=== PATIENT | female | born 1975 | race Caucasian/White ===

== ENCOUNTER 2016-08-06 12:05 | Emergency (ER) | payer OTHER ==
[~2016-08-06] VITALS: Wt 93.2 kg
[~2016-08-06 12:05] MED LIST: ACET500C5 PO; ALBU8.5H3 INH; AZIT250T94 PO; AZIT500T5 PO; BENZ100C70 PO; HYD25 PO; PRED50 PO
[2016-08-06 13:15] VITALS: BP 170/104
--- NOTE | 2016-08-06 13:18 | ERD ---
ER Documentation Chief Complaint Date/Time DATE: 08/06/16 TIME: 13:15 Chief Complaint high bp this am after starting new bp med last night HPI Patient is a 41-year-old female with a history of epilepsy and hypertension who presents to the ED with blood pressure recheck. She states that she started amlodipine 10 mg daily last night after visiting her primary care. She states that her blood pressure readings have been in the 190s over 120s. She states that she went to her dentist this morning to have her teeth pulled however the dentist sent her to the ED for blood pressure management. She states that she does not have an appointment with the dentist coming up and will be making appointment in the future. She states that she has only started her amlodipine yesterday and states that her blood pressure is in the 180s over 106 at home. Denies headache or dizziness. Denies blurry vision. No complaints. ROS All systems reviewed and are negative except as per history of present illness. Medications Home Meds Active Scripts Benzonatate* (Tessalon Perle*) 100 Mg Capsule, 100 MG PO TID Y for COUGH, #20 CAP Prov:KRUNAL JUAREZ 01/05/16 Prednisone (Prednisone) 50 Mg Tab, 50 MG PO DAILY, #5 TAB Prov:KRUNAL JUAREZ 01/05/16 Albuterol Sulfate* (Proair HFA*) 8.5 Gm Hfa.aer.ad, 2 PUFF INH Q4, #1 INHALER Prov:KRUNAL JUAREZ 01/05/16 Azithromycin* (Azithromycin*) 500 Mg Tablet, 500 MG PO DAILY, #7 TAB Prov:KRUNAL JUAREZ 01/05/16 Hydrochlorothiazide* (Hydrochlorothiazide*) 25 Mg Tab, 25 MG PO DAILY, #30 TAB Prov:KRUNAL JUAREZ 01/05/16 Acetaminophen* (Tylophen*) 500 Mg Capsule, 2 CAP PO Q8H Y for PAIN AND OR ELEVATED TEMP, #20 CAP Prov:JIMMY OLIVARES 08/31/15 Azithromycin* (Zithromax*) 250 Mg Tablet, 250 MG PO .ZPACK DIRECTED, #6 TAB TAKE 500 MG (2 TABS) THE FIRST DAY THEN 250 MG (1 TAB) DAYS 2-5 Prov:JIMMY OLIVARES 08/31/15 Allergies Allergies: Coded Allergies: No Known Allergy (Unverified , 08/31/15) PMhx/Soc History of Surgery: No Hx Neurological Disorder: Yes (seizure) Hx Cardiac Disorders: Yes (HTN) Hx Psychiatric Problems: No Hx Miscellaneous Medical Probl: No Hx Alcohol Use: No Hx Substance Use: No Hx Tobacco Use: No Smoking Status: Never smoker FmHx Family History: No coronary disease, No diabetes, No other Physical Exam Vitals Vital Signs Date Time Temp Pulse Resp B/P Pulse Ox O2 Delivery O2 Flow Rate FiO2 08/06/16 12:10 99.0 124 20 185/107 99 Physical Exam GENERAL: Well-developed, well-nourished female. Appears in no acute distress. HEAD: Normocephalic, atraumatic. EYES: Pupils are equally reactive bilaterally. EOMs grossly intact. No conjunctival erythema. ENT: Moist mucous membranes. No uvula deviation. No kissing tonsils. No exudates. NECK: Supple. No lymphadenopathy or thyromegaly. No meningismus. negative kernig. negative brudinski. LUNG: Clear to auscultation bilaterally. No rhonchi, wheezing, rales or coarse breath sounds. HEART: Regular rate and rhythm. No murmurs, rubs or gallops. NEUROLOGIC: Alert and oriented. Moving all four extremities. 5/5 strength in all extremities. Normal speech. Steady gait. Cranial nerves II through XII intact SKIN: Normal color. Warm and dry. No rashes or lesions. Capillary refill < 2 seconds Procedures/MDM ER COURSE: I kept the patient and/or family informed of laboratory and diagnostic imaging results throughout the emergency room course. MEDICAL DECISION MAKING: This is a 41-year-old female who presents with hypertension. Vital signs were reviewed. Patient is afebrile. Patient is not hypoxic. Patient's blood pressure in the ED is 185/107. She states that her amlodipine was started last night. I have consulted with Dr. Bailey who has reviewed her vitals and history. Patient will not be given any blood pressure medications in the ED. Patient does not show signs of hypertensive urgency, emergency, or end organ damage. Since she just started her amlodipine, I instructed patient that it takes time for blood pressure management. Advised patient to follow-up with her primary care in 1 week after recording her blood pressure readings for better blood pressure management. Low suspicion for intracranial hemorrhage, meningitis, intracranial mass, concussion, temporal arteritis, stroke, elevated intracranial pressure, seizure. DISCHARGE: At this time, patient is stable for discharge and outpatient management with no new complaints during the ER course. Patient will be discharged home with instructions to recheck for new or worsening symptoms such as fever, nausea, weakness, LOC and to follow up with primary care in the next 1-2 days. Patient was advised to return to the ER for any new or worsening symptoms. Plan was discussed and patient and/or family understands and agrees. Home instructions were given. Departure Diagnosis: Primary Impression: High blood pressure Hypertension type: essential hypertension Qualified Code: I10 - Essential hypertension Condition: Stable Patient Instructions: High Blood Pressure (Hypertension) Additional Instructions: Call your primary care doctor TOMORROW for an appointment during the next 1-2 days.See the doctor sooner or return here if your condition worsens before your appointment time. Continue taking your amlodipine as directed by your PCP. Follow-up in 1 week and record her blood pressures at home. DEAN YI PA-C Aug 06, 2016 13:18
== END 2016-08-06 13:17 | disposition home or self-care (01) ==
LOC: FTE 12:05
DX: I10 Essential (primary) hypertension (principal)
CPT/HCPCS: 99282

== ENCOUNTER 2016-11-02 15:35 | Emergency (ER) | payer OTHER ==
[~2016-11-02] VITALS: Ht 154.9 cm; Wt 93.0 kg
[2016-11-02 15:45] VITALS: Ht 154.9 cm; Wt 93.0 kg
[2016-11-02] MEDS ORDERED: KETOROLAC 30 MG INJ IV STA (18:19)
[2016-11-02] MEDS ORDERED: DIPHENHYDRAMINE 50 MG INJ IV STA (18:19)
[2016-11-02] MEDS ORDERED: SOD CHLORIDE 0.9% 1,000 ML IV STA (18:19)
[2016-11-02] MEDS ORDERED: METOCLOPRAMIDE 10 MG INJ IV STA (18:19)
[2016-11-02 19:04] LABS: ADD SCAN DIFF NO
[2016-11-02 19:07] LABS: BASOPHILS % 0.2 % (0.0-2.0); EOSINOPHILS # 0.4 10^3/ul (0.0-0.5); EOSINOPHILS % 2.3 % (0.0-7.0); HEMATOCRIT 44.1 % (37.0-47.0); LYMPHOCYTES # 3.7 10^3/ul (0.8-2.9); LYMPHOCYTES % 23.2 % (15.0-51.0); MEAN CORPUSCULAR HEMOGLOBIN 29.1 pg (29.0-33.0); MEAN CORPUSCULAR VOLUME 85.6 fl (82.0-101.0); MEAN PLATELET VOLUME 9.9 fl (7.4-10.4); MONOCYTE # 0.9 10^3/ul (0.3-0.9); MONOCYTES % 5.9 % (0.0-11.0); NEUTROPHIL # 10.9 10^3/ul (1.6-7.5); PLATELET COUNT 300 10^3/UL (140-415); RED BLOOD COUNT 5.15 10^6/ul (4.20-5.40); RED CELL DISTRIBUTION WIDTH 13.2 % (11.5-14.5)
[2016-11-02 19:21] LABS: INR 0.93; PROTIME 12.5 Sec (12.2-14.2)
[2016-11-02 19:22] LABS: PARTIAL THROMBOPLASTIN TIME 28.1 Sec (25.0-35.0)
[2016-11-02 19:24] LABS: POTASSIUM 3.5 mmol/L (3.5-5.1)
[2016-11-02 19:27] LABS: CREATININE 0.53 mg/dl (0.44-1.00)
[2016-11-02 19:28] LABS: CALCIUM 9.3 mg/dl (8.4-10.2)
--- NOTE | 2016-11-02 19:45 | RADRPT ---
PROCEDURE: CT Brain without contrast. CLINICAL INDICATION: Patient experiencing a headache. TECHNIQUE: A multiplanar CT of the brain was performed on a CT scanner utilizing axial imaging fro m the skull base through the vertex without IV contrast. The CTDIvol is 43.16 mGy and the DLP is 81 0.25 mGycm. One or more of the following dose reduction techniques were utilized: Automated exposu re control, adjustment of the mA and/or kV according to patient size, use of iterative reconstructio n technique. COMPARISON: None FINDINGS: No evidence of intracranial hemorrhage or abnormal extra-axial fluid collection. The brain parenchyma is normal attenuation morphology with preservation of turner white differentiatio n and age appropriate size of the ventricles and subarachnoid spaces. The basal cisterns, posterior fossa contents, brainstem, craniocervical junction, orbits, pituitary axis, paranasal sinuses, mastoid air cells, and calvarium are unremarkable. IMPRESSION: 1. No intracranial hemorrhage or acute intracranial abnormality. 2. If clinical symptoms persist, MRI may be considered as follow up. RPTAT:AAJJ Physician Magdy Date Time Electronically viewed and signed by Physician Magdy on 11/02/2016 19:44 CLEM/
[2016-11-02 20:53] LABS: URINE BLOOD (Dip) POC 2+ (NEGATIVE)
[2016-11-02] MEDS ORDERED: NITR-58 PO (21:01)
--- NOTE | 2016-11-02 21:08 | ERD ---
ER Documentation Chief Complaint Date/Time DATE: 11/02/16 TIME: 21:05 Chief Complaint Pt with intermittent BARRON X 2 weeks, worst today. HPI This is a 41-year-old female presents to the ER with a headache for the last 2 weeks. Patient states that the headache is left-sided as described as sharp. Headache is intermittent. Patient denies any loss of consciousness she denies any trauma. She denies any fever or chills. She denies any photophobia. She denies any eye pain. She denies any nausea or vomiting. Patient states that she tried Tylenol and Motrin for the headache however it did not work. Patient denies any urinary frequency or dysuria. ROS 12 point review of systems was done, all negative except per HPI. Medications Home Meds Active Scripts Nitrofurantoin Monohyd Macrocr* (Macrobid*) 100 Mg Capsr, 100 MG PO BID for 7 Days, CAP Prov:JIMMY OLIVARES 11/02/16 Benzonatate* (Tessalon Perle*) 100 Mg Capsule, 100 MG PO TID Y for COUGH, #20 CAP Prov:KRUNAL JUAREZ 01/05/16 Prednisone (Prednisone) 50 Mg Tab, 50 MG PO DAILY, #5 TAB Prov:KRUNAL JUAREZ 01/05/16 Albuterol Sulfate* (Proair HFA*) 8.5 Gm Hfa.aer.ad, 2 PUFF INH Q4, #1 INHALER Prov:KRUNAL JUAREZ 01/05/16 Azithromycin* (Azithromycin*) 500 Mg Tablet, 500 MG PO DAILY, #7 TAB Prov:KRUNAL JUAREZ 01/05/16 Hydrochlorothiazide* (Hydrochlorothiazide*) 25 Mg Tab, 25 MG PO DAILY, #30 TAB Prov:KRUNAL JUAREZ 01/05/16 Acetaminophen* (Tylophen*) 500 Mg Capsule, 2 CAP PO Q8H Y for PAIN AND OR ELEVATED TEMP, #20 CAP Prov:JIMMY OLIVARES 08/31/15 Azithromycin* (Zithromax*) 250 Mg Tablet, 250 MG PO .ZPACK DIRECTED, #6 TAB TAKE 500 MG (2 TABS) THE FIRST DAY THEN 250 MG (1 TAB) DAYS 2-5 Prov:JIMMY OLIVARES 08/31/15 Allergies Allergies: Coded Allergies: No Known Allergy (Unverified , 08/31/15) PMhx/Soc History of Surgery: No Hx Neurological Disorder: Yes (seizure) Hx Cardiac Disorders: Yes (HTN) Hx Psychiatric Problems: No Hx Miscellaneous Medical Probl: No Hx Alcohol Use: No Hx Substance Use: No Hx Tobacco Use: No Smoking Status: Never smoker Physical Exam Vitals Vital Signs Date Time Temp Pulse Resp B/P Pulse Ox O2 Delivery O2 Flow Rate FiO2 11/02/16 15:45 99.6 107 16 170/101 97 Physical Exam GENERAL: The patient is well developed and appropriate for usual state of health , in no apparent distress. HEENT: Atraumatic. Conjunctivae are pink. Pupils equal, round, and reactive to light. Extraocular muscles are grossly intact. Bilateral tympanic membranes are clear with no evidence of erythema, bulging or perforation. No sinus tenderness. NECK: C-spine is soft and supple. There is no cervical lymphadenopathy. CHEST: Clear to auscultation bilaterally. There are no rales, wheezes or rhonchi. HEART: Regular rate and rhythm. No murmurs, clicks, rubs or gallops. EXTREMITIES: Equal pulses bilaterally. There is no peripheral clubbing, cyanosis or edema. No focal swelling or erythema. Full range of motion. Grossly neurovascularly intact. NEURO: Alert and oriented. Cranial nerves II through XII are intact. Motor strength in all 4 extremities with 5/5 strength. Sensation grossly intact. Normal speech and gait. Negative Rhomberg. +2 DTRs. SKIN: There is no apparent rash or petechia. The skin is warm and dry. Result Diagram: 11/02/16189911/02/161899 Results 24 hrs Laboratory Tests Test 11/02/16 19:00 11/02/16 20:55 White Blood Count 16.010^3/ul Red Blood Count 5.1510^6/ul Hemoglobin 15.0g/dl Hematocrit 44.1% Mean Corpuscular Volume 85.6fl Mean Corpuscular Hemoglobin 29.1pg Mean Corpuscular Hemoglobin Concent 34.0g/dl Red Cell Distribution Width 13.2% Platelet Count 81030^3/UL Mean Platelet Volume 9.9fl Neutrophils % 68.0% Lymphocytes % 23.2% Monocytes % 5.9% Eosinophils % 2.3% Basophils % 0.2% Nucleated Red Blood Cells % 0.0/100WBC Neutrophils # 10.910^3/ul Lymphocytes # 3.710^3/ul Monocytes # 0.910^3/ul Eosinophils # 0.410^3/ul Basophils # 0.010^3/ul Nucleated Red Blood Cells # 0.010^3/ul Prothrombin Time 12.5Sec Prothrombin Time Ratio 1.0 INR International Normalized Ratio 0.93 Activated Partial Thromboplast Time 28.1Sec Sodium Level 141mmol/L Potassium Level 3.5mmol/L Chloride Level 100mmol/L Carbon Dioxide Level 25mmol/L Anion Gap 20 Blood Urea Nitrogen 12mg/dl Creatinine 0.53mg/dl Glucose Level 191mg/dl Calcium Level 9.3mg/dl Bedside Urine pH (LAB) 5.5 Bedside Urine Protein (LAB) Trace Bedside Urine Glucose (UA) 0.1% Bedside Urine Ketones (LAB) Negative Bedside Urine Blood 2+ Bedside Urine Nitrite (LAB) Positive Bedside Urine Leukocyte Esterase (L Negative Current Medications Medications (Trade) Dose Ordered Sig/Ivelisse Route PRN Reason Start Time Stop Time Status Last Admin Dose Admin Sodium Chloride (NS) 1,000 ml @ 1,000 mls/hr Q1H STAT IV 11/02/16 18:19 11/02/16 19:18 DC 11/02/16 18:46 Metoclopramide HCl (Reglan) 10 mg ONCE STAT IV 11/02/16 18:19 11/02/16 18:21 DC 11/02/16 18:46 Ketorolac Tromethamine (Toradol) 30 mg ONCE STAT IV 11/02/16 18:19 11/02/16 18:21 DC 11/02/16 18:47 Diphenhydramine HCl (Benadryl) 25 mg ONCE STAT IV 11/02/16 18:19 11/02/16 18:21 DC 11/02/16 18:56 Procedures/MDM Differential Diagnosis includes but is not limited to; tension headache, migraine headache, cluster headache, sinus headache, nonspecific febrile headache, trigeminal neurologia, subdural hematoma, subarachnoid bleeding, meningitis, encephalitis. Patient is neurologically intact with no focal neurological deficits. Patient is neurologically intact with no focal neurological deficit patient was given a migraine cocktail in the ER and felt significantly better. Patient was found to have a urinary tract infection, this is likely why her white blood cell count is elevated to 16,000. At this time patient is afebrile and well-appearing. She is nontoxic appearing. Suspicion for meningitis or encephalitis is low. Patient is to follow-up with her primary care doctor within 1-2 days return to ER sooner if symptoms worsen. My medical decision making was shared with the patient she understands and agrees with plan. Departure Diagnosis: Primary Impression: UTI (urinary tract infection) Condition: Stable Patient Instructions: Understanding Urinary Tract Infections (UTIs) Additional Instructions: Call your primary care doctor TOMORROW for an appointment during the next 1-2 days.See the doctor sooner or return here if your condition worsens before your appointment time. JIMMY OLIVARES November 02, 2016 21:08
[2016-11-02 21:15] VITALS: BP 158/89; PULSE 89; RESP 16
[2016-11-02 21:20] LABS: ADD UMIC YES; URINE BILIRUBIN (Dip) NEGATIVE (NEGATIVE); URINE BLOOD (Dip) 3+ (NEGATIVE); URINE COLOR LT. YELLOW (YELLOW); URINE KETONES (Dip) NEGATIVE (NEGATIVE); URINE LEUKOCYTE ESTERASE (Dip) NEGATIVE (NEGATIVE); URINE NITRITE (Dip) POSITIVE (NEGATIVE); URINE TOTAL PROTEIN (Dip) NEGATIVE (NEGATIVE); URINE UROBILINOGEN (Dip) 0.2 E.U./dL (0.1-1.0)
[2016-11-02 21:30] LABS: BACTERIA,URINE MANY; SQUAMOUS EPITHELIAL CELL,UR FEW; URINE RBCS 25-50 /HPF (0)
== END 2016-11-02 21:16 | disposition home or self-care (01) ==
LOC: FTE 15:35
DX: N39.0 Urinary tract infection, site not specified (principal); I10 Essential (primary) hypertension
CPT/HCPCS: 36415; 70450; 80048; 81001; 85025; 85610; 85730; 96374; 96375; J1200; J1885; J2765; J7030; Z7502; 81003

== ENCOUNTER 2017-07-23 01:52 | Emergency (ER) | END 2017-07-23 06:12 | disposition home or self-care (01) ==

== ENCOUNTER 2018-12-24 16:37 | Emergency (ER) | payer OTHER ==
[~2018-12-24] VITALS: Wt 100.1 kg
[~2018-12-24 16:37] MED LIST changes: +ALBU18HF INHALATION; -ALBU8.5H3 INH; +ALBU8.5H8 INH; +AZIT250T PO; -AZIT250T94 PO; +BENZ-6 PO; -BENZ100C70 PO; +D-ME473S2 PO; +ELEC100080 PO; -HYD25 PO; +HYDR25TA6 PO; +IBUP-1542 PO; +NITR-58 PO; +PRED20TA PO
[2018-12-24 16:44] VITALS: BP 178/92; PULSE 111; RESP 18
[2018-12-24] MEDS ORDERED: IBUP800T48 PO (17:40)
--- NOTE | 2018-12-24 17:40 | ERD ---
ER Documentation Chief Complaint Chief Complaint R heel pain x3wks, no meds taken. steady gait. HPI 43 year old female complaining of right foot pain x 3 weeks. She denies any falls or injuries. She denies previous injury to the foot. She reports the pain is located at the bottom of her foot and does not radiate anywhere. She reports the pain as 5/10 intensity and sharp. She states the pain is worse in the morning when she takes her first step. She has not taken any medication of this. Past med hx: HTN, DM ROS All systems reviewed and are negative except as per history of present illness. Medications Home Meds Active Scripts Ibuprofen* (Motrin*) 800 Mg Tab, 800 MG PO Q6H PRN for PAIN AND OR ELEVATED TEMP, #30 TAB Prov:JA POWERS PA-C 12/24/18 Dextromethorphan Hb-Promethazine Hcl* (Promethazine DM* Syrup) 473 Ml Syrup, 5 ML PO Q6 PRN for COUGH, #4 OZ Prov:QUIN ENCISO PA-C 07/23/17 Acetaminophen* (Tylophen*) 500 Mg Capsule, 1 CAP PO Q6H PRN for PAIN AND OR ELEVATED TEMP, #30 CAP Prov:QUIN ENCISO PA-C 07/23/17 Ibuprofen* (Motrin*) 600 Mg Tab, 600 MG PO Q6, #30 TAB Prov:QUIN ENCISOC 18 Prednisone* (Prednisone*) 20 Mg Tab, 40 MG PO DAILY for 4 Days, TAB Prov:QUIN ENCISO PA-C 07/23/17 Albuterol Sulfate* (Ventolin HFA*) 18 Gm Hfa.aer.ad, 2 PUFF INHALATION Q4H, #1 INHALER Prov:QUIN ENCISO PA-C 07/23/17 Electrolyte,Oral (Pedialyte) 1,000 Ml Solution, 100 ML PO Q6 PRN for FEVER, #1000 ML Prov:QUIN ENCISOC 07/23/17 Azithromycin* (Zithromax*) 250 Mg Tablet, 250 MG PO .AngelianPACK DIRECTED, #6 TAB TAKE 500 MG (2 TABS) THE FIRST DAY THEN 250 MG (1 TAB) DAYS 2-5 Prov:QUIN ENCISO PA-C 07/23/17 Nitrofurantoin Monohyd Macrocr* (Macrobid*) 100 Mg Capsr, 100 MG PO BID for 7 Days, CAP Prov:JIMMY OLIVARES 11/02/16 Benzonatate* (Tessalon Perle*) 100 Mg Capsule, 100 MG PO TID PRN for COUGH, #20 CAP Prov:KRUNAL JUAREZ MD 01/05/16 Prednisone (Prednisone) 50 Mg Tab, 50 MG PO DAILY, #5 TAB Prov:KRUNAL JUAREZ MD 01/05/16 Albuterol Sulfate* (Proair HFA*) 8.5 Gm Hfa.aer.ad, 2 PUFF INH Q4, #1 INHALER Prov:KRUNAL JUAREZ MD 01/05/16 Azithromycin* (Azithromycin*) 500 Mg Tablet, 500 MG PO DAILY, #7 TAB Prov:KRUNAL JUAREZ MD 01/05/16 Hydrochlorothiazide* (Hydrochlorothiazide*) 25 Mg Tab, 25 MG PO DAILY, #30 TAB Prov:KRUNAL JUAREZ MD 01/05/16 Acetaminophen* (Tylophen*) 500 Mg Capsule, 2 CAP PO Q8H PRN for PAIN AND OR ELEVATED TEMP, #20 CAP Prov:JIMMY OLIVARES 08/31/15 Azithromycin* (Zithromax*) 250 Mg Tablet, 250 MG PO .ZPACK DIRECTED, #6 TAB TAKE 500 MG (2 TABS) THE FIRST DAY THEN 250 MG (1 TAB) DAYS 2-5 Prov:JIMMY OLIVARES 08/31/15 Allergies Allergies: Coded Allergies: No Known Allergy (Unverified , 08/31/15) PMhx/Soc History of Surgery: No Hx Neurological Disorder: Yes (seizure) Hx Respiratory Disorders: No Hx Cardiac Disorders: Yes (HTN) Hx Psychiatric Problems: No Hx Miscellaneous Medical Probl: Yes (DM, HIGH CHOLESTEROL ) Hx Alcohol Use: No Hx Substance Use: No Hx Tobacco Use: No FmHx Family History: No diabetes Physical Exam Vitals Vital Signs Date Temp Pulse Resp B/P (MAP) Pulse Ox O2 O2 Flow FiO2 Time Delivery Rate 12/24/18 99.4 111 18 178/92 99 16:44 (120) Physical Exam Const: No acute distress Head: Atraumatic Eyes: Normal Conjunctiva ENT: Normal External Ears, Nose and Mouth. Neck: Full range of motion. No meningismus. Resp: Clear to auscultation bilaterally Cardio: Regular rate and rhythm, no murmurs Abd: Soft, non tender, non distended. Normal bowel sounds Skin: No petechiae or rashes Back: No midline or flank tenderness Ext: slight tenderness to bottom of right foot Neur: Awake and alert Psych: Normal Mood and Affect Procedures/MDM ED COURSE: The patient was stable throughout ED course. I kept the patient informed of laboratory and diagnostic imaging results throughout the ED course. MEDICATIONS GIVEN: [None.] MEDICAL DECISION MAKING: Patient is a 43 year old female complaining of right foot pain x 3 weeks. She is in no acute distress or pain. She reports her pain is worse in the morning and improves throughout the day. Based on H&P, I believe pt is suffering from plantar fascititis. No imaging was needed at this time. Pt was given motrin and told to follow up with PCP or ortho for further care. I have low suspicion for fracture, cellulitis, abscess, charcot foot, or dislocation. Vital signs were reviewed. Patient is afebrile. Patient was not hypoxic. Patient was hemodynamically stable. Patient was told to follow up with primary care for further care and management. PRESCRIPTION: motrin DISCHARGE: At this time, patient is stable for discharge and outpatient management. I have instructed the patient to follow-up with his/her primary care physician in 1-2 days. I have discussed with the patient the possibility of needing to see a specialist for further workup and imaging studies if symptoms persist. I have instructed the patient to promptly return to the ER for any new or worsening symptoms including increased pain, fever, nausea, vomiting, weakness or LOC. The patient expressed understanding of and agreement with this plan. All questions were answered. Home care instructions were provided. Disclaimer: Inadvertent spelling and grammatical errors are likely due to EHR/dictation software use and do not reflect on the overall quality of patient care. Also, please note that the electronic time recorded on this note does not necessarily reflect the actual time of the patient encounter. Departure Diagnosis: Primary Impression: Plantar fasciitis, right Condition: Stable Patient Instructions: Plantar Fasciitis Referrals: [facility] YOU HAVE RECEIVED A MEDICAL SCREENING EXAM AND THE RESULTS INDICATE THAT YOU DO NOT HAVE A CONDITION THAT REQUIRES URGENT TREATMENT IN THE EMERGENCY DEPARTMENT. FURTHER EVALUATION AND TREATMENT OF YOUR CONDITION CAN WAIT UNTIL YOU ARE SEEN IN YOUR DOCTORS OFFICE WITHIN THE NEXT 1-2 DAYS. IT IS YOUR RESPONSIBILITY TO MAKE AN APPOINTMENT FOR FOLOW-UP CARE. IF YOU HAVE A PRIMARY DOCTOR --you should call your primary doctor and schedule an appointment IF YOU DO NOT HAVE A PRIMARY DOCTOR YOU CAN CALL OUR PHYSICIAN REFERRAL HOTLINE AT IF YOU CAN NOT AFFORD TO SEE A PHYSICIAN YOU CAN CHOSE FROM THE FOLLOWING [facility] [address] [facility]. [facility] [address] [facility] [facility] [address] [facility] [facility] [address] [facility]. [facility] [address] [facility]. [facility] [address] [facility]. [facility] YOU HAVE RECEIVED A MEDICAL SCREENING EXAM AND THE RESULTS INDICATE THAT YOU DO NOT HAVE A CONDITION THAT REQUIRES URGENT TREATMENT IN THE EMERGENCY DEPARTMENT. FURTHER EVALUATION AND TREATMENT OF YOUR CONDITION CAN WAIT UNTIL YOU ARE SEEN IN YOUR DOCTORS OFFICE WITHIN THE NEXT 1-2 DAYS. IT IS YOUR RESPONSIBILITY TO MAKE AN APPOINTMENT FOR FOLOW-UP CARE. IF YOU HAVE A PRIMARY DOCTOR --you should call your primary doctor and schedule and appointment IF YOU DO NOT HAVE A PRIMARY DOCTOR YOU CAN CALL OUR PHYSICIAN REFERRAL HOTLINE AT . IF YOU CAN NOT AFFORD TO SEE A PHYSICIAN YOU CAN CHOSE FROM THE FOLLOWING [facility] INSTITUTIONS: [facility] [address] [place] [address] [facility] [address] [place] [address] [facility] [address] [place] [address] [facility] 7 a.m.- 11 p.m. Every Day of the Week NO APPOINTMENT OR AUTHORIZATION NEEDED [facility] Hours: Mon-Fri 9:00 AM - 5:00 PM Additional Instructions: Call your primary care doctor TOMORROW for an appointment during the next 2-3 days.See the doctor sooner or return here if your condition worsens before your appointment time. JA POWERS PA-C Dec 24, 2018 17:40
== END 2018-12-24 18:05 | disposition home or self-care (01) ==
LOC: FTE 16:37
DX: M72.2 Plantar fascial fibromatosis (principal); I10 Essential (primary) hypertension; E11.9 Type 2 diabetes mellitus without complications
CPT/HCPCS: 99282